=== PATIENT | male | born 1980 | race Caucasian/White ===

== ENCOUNTER 2018-04-06 01:00 | Emergency (ER) | payer OTHER ==
[2018-04-06] MEDS ORDERED: IBUPROFEN 600 MG TAB PO ONE ×2 (01:07→01:08)
--- NOTE | 2018-04-06 01:07 | EDPHY ---
H & P Stated Complaint: R middle finger injury Time Seen by Provider: 04/06/18 01:06 HPI/ROS: HPI CHIEF COMPLAINT: Right middle finger injury. HISTORY OF PRESENT ILLNESS: Patient very pleasant 37-year-old male, he is otherwise healthy he denies having any significant medical history. He presents emergency room after he sustained injury at work to his right middle finger. 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 He injured it initially last week and then sustained a 2nd injury this evening. He did have a subungual hematoma that he drained himself with a drill bit. He drained twice. However he decided come the emergency room due to ongoing throbbing and pain to the distal aspect of his right middle finger. He is neurovascular intact. He has a very small subungual hematoma that was already drained by himself. There is no evidence of infection. No evidence of redness or cellulitis or drainage or pus. He is unsure of his tetanus shot is up-to-date. Past Medical History: Denies medical history Past Surgical History: Denies any surgical history Social History: Denies daily use of drugs alcohol tobacco. Family History: Noncontributory ROS REVIEW OF SYSTEMS: A comprehensive 10 point review of systems is otherwise negative aside from elements mentioned in the history of present illness. Exam Constitutional appears well nontoxic no acute distress, triage nursing summary reviewed, vital signs reviewed, awake/alert. Eyes normal conjunctivae and sclera, EOMI, PERRLA. HENT normal inspection, atraumatic, moist mucus membranes, no epistaxis, neck supple/ no meningismus, no raccoon eyes. Respiratory clear to auscultation bilaterally, normal breath sounds, no respiratory distress, no wheezing. Cardiovascular rate normal, regular rhythm, no murmur, no edema, distal pulses normal. Gastrointestinal soft, non-tender, no rebound, no guarding, normal bowel sounds, no distension, no pulsatile mass. Genitourinary no CVA tenderness. Musculoskeletal right hand: Middle digit; tender palpation and some mild swelling to the distal aspect of the right middle finger. Underneath the nail bed there is a small subungual hematoma that has been drained twice by the patient. There is no signs of infection. He has good cap refill, has full range of motion, no sausage digit. There is no erythema pus or drainage. Does have some mild tenderness palpation distal aspect of that digit. no midline vertebral tenderness, full range of motion, no calf swelling, no tenderness of extremities, no meningismus, good pulses, neurovascularly intact. Skin pink, warm, & dry, no rash, skin atraumatic. Neurologic awake, alert and oriented x 3, AAOx3, moves all 4 extremities equally, motor intact, sensory intact, CN II-XII intact, normal cerebellar, normal vision, normal speech. Psychiatric normal mood/affect. Heme/Lymph/Immune no lymphadenopathy. Differential Diagnosis: Includes but is not limited to in a particular order finger injury, soft tissue swelling, subungual hematoma, crush injury to the digit, tuft fracture, phalanx fracture Medical Decision Making: Plan for this patient x-ray right 3rd digit are x-ray of the middle finger to rule out fracture. Most likely splint recommend anti- inflammatory pain medicine. His tetanus shot will need to be updated. He already drain his subungual hematoma twice. It is not appear to be very large or pushing up on the nail bed. I do not think he would benefit from a 3rd drain. I will refer him to Hand surgery as well for follow-up care. Additionally discussed return precautions with me understands return emergency room if develops worsening pain fever swelling questions or concerns. Re-evaluation: X-ray of the finger 3rd digit negative for acute traumatic injury. Image interpreted by myself. Recommend anti-inflammatory pain medicine, ice, finger splint for comfort. Recommend following up with Hand surgery. Return precautions discussed he understands return emergency room if develops any worsening pain questions or concerns or signs of infection. Source: Patient - Personal History Current Tetanus/Diphtheria Vaccine: Yes Current Tetanus Diphtheria and Acellular Pertussis (TDAP): Yes - Medical/Surgical History Hx Asthma: No Hx Chronic Respiratory Disease: No Hx Diabetes: No Hx Cardiac Disease: No Hx Renal Disease: No Hx Cirrhosis: No Hx Alcoholism: No Hx HIV/AIDS: No Hx Splenectomy or Spleen Trauma: No Other PMH: denies - Social History Smoking Status: Never smoked Constitutional: Initial Vital Signs Temperature (C) 36.7 C 04/06/18 01:02 Heart Rate 65 04/06/18 01:02 Respiratory Rate 16 04/06/18 01:02 Blood Pressure 128/85 H 04/06/18 01:02 O2 Sat (%) 98 04/06/18 01:02 O2 Delivery Mode Room Air Allergies/Adverse Reactions: penicillin Allergy (Verified 06/05/15 15:43) Home Medications: Medication Instructions Recorded NK [No Known Home Meds] 04/06/18 Medical Decision Making - Data Points Medications Given: Discontinued Medications Diphtheria/Tetanus/Acell Pertussis (Boostrix) 0.5 ml IM .ONCE ONE Stop: 04/06/18 01:11 Last Admin: 04/06/18 01:12 Dose: 0.5 ml Ibuprofen (Motrin) 600 mg PO EDNOW ONE Stop: 04/06/18 01:09 Last Admin: 04/06/18 01:09 Dose: 600 mg Departure - Departure Disposition: Home, Routine, Self-Care Clinical Impression: Finger contusion Qualifiers: Encounter type: initial encounter Finger: middle finger Damage to nail status: with damage Laterality: right Qualified Code(s): S60.131A - Contusion of right middle finger with damage to nail, initial encounter Subungual hematoma of finger Qualifiers: Encounter type: initial encounter Qualified Code(s): S60.10XA - Contusion of unspecified finger with damage to nail, initial encounter Condition: Good Instructions: Subungual Hematoma (ED), Contusion in Adults (ED) Additional Instructions: 1. Recommend keeping it elevated and near splint for comfort 2. Recommend anti-inflammatory pain medicine like Tylenol Motrin 3. Recommend ice. 4. Follow up Hand surgery as needed. 5. Return emergency room if you have worsening symptoms questions or concerns. Referrals: NONE *PRIMARY CARE P,. [Primary Care Provider] - As per Instructions Jamie Arechiga MD [Medical Doctor] - As per Instructions
[2018-04-06] MEDS ORDERED: TDAP ADULT 0.5 ML INJ (BOOSTRIX) IM ONE (01:10)
[2018-04-06 02:07] VITALS: BP 134/80
== END 2018-04-06 02:06 | disposition home or self-care (01) ==
DX: S60.131A Contusion of right middle finger with damage to nail, initial encounter (principal); Z23 Encounter for immunization; W23.1XXA Caught, crushed, jammed, or pinched between stationary objects, initial encounter; Y92.69 Other specified industrial and construction area as the place of occurrence of the external cause; Y99.0 Civilian activity done for income or pay; Y93.89 Activity, other specified
CPT/HCPCS: L3925